=== PATIENT | male | born 2005 | race Caucasian/White ===

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

== ENCOUNTER 2025-04-03 09:18 | Emergency (ER) | payer OTHER ==
[~2025-04-03] VITALS: Ht 172.7 cm; Wt 113.6 kg
[~2025-04-03 09:18] MED LIST: DIPH50CA37 PO; PRED-554 PO; TRIA15CR49 TP
[2025-04-03 09:19] VITALS: TEMP 98.5
[2025-04-03] MEDS: FLUORESCEIN SODIUM 1 MG STRIP OU ONE (09:34)
[2025-04-03] MEDS: PROPARACAINE HCL 0.5% 15 ML OPHTHALMIC SOLUTION OU ONE (09:35)
[2025-04-03 10:00] VITALS: BP 145/67; PULSE 95; RESP 18; O2SAT 100
[2025-04-03] MEDS ORDERED: HYDR-4062 PO (10:08)
[2025-04-03] MEDS ORDERED: MOXI3DRO25 OS (10:08)
== END 2025-04-03 10:21 | disposition home or self-care (01) ==
LOC: EMS 09:19
DX: S05.02XA Injury of conjunctiva and corneal abrasion without foreign body, left eye, initial encounter (principal); X58.XXXA Exposure to other specified factors, initial encounter; Y93.89 Activity, other specified; Y92.89 Other specified places as the place of occurrence of the external cause; Y99.8 Other external cause status
CPT/HCPCS: 99283